=== PATIENT | male | born 1945 | race Caucasian/White ===

== ENCOUNTER 2017-08-11 18:26 | Emergency (ER) | payer OTHER ==
[2017-08-11] MEDS ORDERED: KETOROLAC 30 MG/1 ML SDV IVP ONE (18:45)
[2017-08-11] MEDS ORDERED: ONDANSETRON 4 MG/2 ML VIAL IVP ONE (18:45)
[2017-08-11] MEDS ORDERED: NS 1,000 ML IV ONE ×2 (18:45→20:14)
[2017-08-11] MEDS ORDERED: KETOROLAC 30 MG/1 ML SDV ONE (18:46)
[2017-08-11] MEDS ORDERED: ONDANSETRON 4 MG/2 ML VIAL ONE (18:46)
--- NOTE | 2017-08-11 18:46 | EDPHY ---
HPI/HX/ROS/PE/MDM Narrative: CHIEF COMPLAINT: RLQ pain, nausea, vomiting HPI: The patient is a 72 y/o male with a history of a bilateral hernia surgery and prostatectomy complaining of RLQ pain, onset this morning. The pain gradually increased throughout the day. After eating lunch, he vomited 3 times and developed chills. He last vomited 1.5 hours ago. Nothing alleviates the pain. Denies urinary complaints or history of kidney stone. Last bowel movement was 2 days ago. His last colonoscopy revealed 2 polyps; no sign of diverticulosis. Denies chest pain, shortness of breath, headache, paresthesias, numbness. REVIEW OF SYSTEMS: Aside from elements discussed in the HPI, a comprehensive 10-point review of systems was reviewed and is negative. PMH: GERD, prostatectomy, bilateral hernia surgery SOCIAL HISTORY: at bedside, lives in [place], retired PHYSICAL EXAM: General: Patient is alert, appears in pain, in no acute distress. ENT: Eyes are normal to inspection. ENT inspection normal. Neck: Normal inspection. Full range of motion. Respiratory: No respiratory distress. Breath sounds normal bilaterally. Cardiovascular: Regular rate and rhythm. Strong peripheral pulses. Normal cap refill. Abdomen: RLQ tenderness and moderate diffuse tenderness to palpation. There are no peritoneal signs. There are normal bowel sounds. Back: Normal to inspection. No tenderness to palpation. Skin: Normal color. No rash. Warm and dry. Extremities: Normal appearance. Full range of motion. Neuro: Oriented x3. Normal motor function. Normal sensory function. ED Course: 2016: I reviewed patient's abdominopelvic CT, radiologist reading still pending. 0.5mg IV Dilaudid administered. 2042: Spoke with Dr. Monae, radiologist, regarding this patient's CT. The patient has a right-sided kidney stone. 4mm, UVJ. 2044: Reassessed patient and discussed imaging findings. He is feeling better after fluids, Zofran, and Toradol. I have advised him to strain his urine and to follow up with urology. Return precautions provided; patient is comfortable with this plan. 2103: Spoke with radiologist, the patient has hypodensities in his spleen which he will need to talk to his PCP about. I informed him of this result as well as the need for follow-up. 2109: Reassessed patient and discussed incidental CT findings. MDM: This patient presents with signs and symptoms of a kidney stone, confirmed on CTAP. I see no signs of other causes of pain and patient's pain is well- controlled here in the ED. We discussed follow-up plan. I see no signs of diverticulitis, appendicitis, bowel obstruction or bowel perforation. - Data Points Imaging Results: Imaging Impressions Abdomen CT 08/11/17 19:16 Impression: 1. Calculus measuring 4 mm impacted at the right ureterovesicular junction results in mild right hydroureteronephrosis with moderate associated periureteral/perinephric inflammation. 2. Innumerable hypodense lesions throughout the spleen are indeterminate. 3. Subtle apparent wall thickening in the sigmoid. Differential considerations include nondistention versus a small mass. Recommend referral to gastroenterology. 4. Diverticulosis without evidence of diverticulitis. Dr. Monae discussed these findings by telephone with Wei Ram MD on at 2043 hours. Imaging: Discussed imaging studies w/ central lab technician Radiologist, I viewed and interpreted images myself Laboratory Results: Laboratory Results 08/11/17 18:50 08/11/17 18:50 08/11/17 08/11/17 18:50 18:50 WBC 14.53 10^3/uL H 10^3/uL (3.80-9.50) RBC 4.87 10^6/uL 10^6/uL (4.40-6.38) Hgb 14.6 g/dL g/dL (13.7-17.5) Hct 41.8 % % (40.0-51.0) MCV 85.8 fL fL (81.5-99.8) MCH 30.0 pg pg (27.9-34.1) MCHC 34.9 g/dL g/dL (32.4-36.7) RDW 13.5 % % (11.5-15.2) Plt Count 233 10^3/uL 10^3/uL (150-400) MPV 10.6 fL fL (8.7-11.7) Neut % (Auto) 89.6 % H % (39.3-74.2) Lymph % (Auto) 5.8 % L % (15.0-45.0) Hand % (Auto) 3.9 % L % (4.5-13.0) Eos % (Auto) 0.0 % L % (0.6-7.6) Baso % (Auto) 0.1 % L % (0.3-1.7) Nucleat RBC Rel Count 0.0 % % (0.0-0.2) Absolute Neuts (auto) 13.02 10^3/uL H 10^3/uL (1.70-6.50) Absolute Lymphs (auto) 0.84 10^3/uL L 10^3/uL (1.00-3.00) Absolute Monos (auto) 0.56 10^3/uL 10^3/uL (0.30-0.80) Absolute Eos (auto) 0.00 10^3/uL L 10^3/uL (0.03-0.40) Absolute Basos (auto) 0.02 10^3/uL 10^3/uL (0.02-0.10) Absolute Nucleated RBC 0.00 10^3/uL 10^3/uL (0-0.01) Immature Gran % 0.6 % % (0.0-1.1) Immature Gran # 0.09 10^3/uL 10^3/uL (0.00-0.10) Sodium 145 mEq/L mEq/L (135-145) Potassium 3.9 mEq/L mEq/L (3.5-5.2) Chloride 107 mEq/L mEq/L (97-110) Carbon Dioxide 21 mEq/l L mEq/l (22-31) Anion Gap 17 mEq/L H mEq/L (8-16) BUN 26 mg/dL H mg/dL (7-23) Creatinine 1.4 mg/dL H mg/dL (0.7-1.3) Estimated GFR 50 Glucose 141 mg/dL H mg/dL (70-100) Calcium 9.7 mg/dL mg/dL (8.5-10.4) Medications Given: Discontinued Medications Hydromorphone HCl (Dilaudid) 0.5 mg IVP EDNOW ONE Stop: 08/11/17 20:19 Last Admin: 08/11/17 20:24 Dose: 0.5 mg Sodium Chloride (Ns) 1,000 mls @ 0 mls/hr IV EDNOW ONE; Wide Open PRN Reason: Protocol Stop: 08/11/17 18:46 Last Admin: 08/11/17 18:48 Dose: 1,000 mls Sodium Chloride (Ns) 1,000 mls @ 0 mls/hr IV ONCE ONE PRN Reason: Wide Open Stop: 08/11/17 20:15 Last Admin: 08/11/17 20:18 Dose: 1,000 mls Ketorolac Tromethamine (Toradol) 30 mg IVP EDNOW ONE Stop: 08/11/17 18:46 Last Admin: 08/11/17 18:48 Dose: 30 mg Ondansetron HCl (Zofran) 4 mg IVP EDNOW ONE Stop: 08/11/17 18:46 Last Admin: 08/11/17 18:48 Dose: 4 mg General Time Seen by Provider: 08/11/17 18:38 Initial Vital Signs: Initial Vital Signs Temperature (C) 36.6 C 08/11/17 18:33 Heart Rate 90 08/11/17 18:33 Respiratory Rate 16 08/11/17 18:33 Blood Pressure 147/83 H 08/11/17 18:33 O2 Sat (%) 98 08/11/17 18:33 O2 Delivery Mode Room Air Allergies/Adverse Reactions: caffeine Allergy (Verified 08/11/17 18:32) Sulfa (Sulfonamide Antibiotics) Allergy (Verified 08/11/17 18:32) Home Medications: Medication Instructions Recorded Ibuprofen 08/11/17 Omeprazole 08/11/17 Departure - Departure Disposition: Home, Routine, Self-Care Clinical Impression: Kidney stone on right side Condition: Good Instructions: Oxycodone/Acetaminophen (By mouth), Ondansetron (By mouth), Kidney Stones (ED) Additional Instructions: Followup with your urologist within one week. Return to the emergency apartment for fever, severe pain, inability to urinate or other concerns. Strain urine to try and catch the kidney stone and bring this to the urology appointment. You have hypodensity in your spleen which you need to talk to your PCP about. Referrals: Roderick Killian MD [Primary Care Provider] - As per Instructions Tiff Man MD [Medical Doctor] - As per Instructions Report Scribed for: Wei Ram Report Scribed by: Yesenia Sorto Date of Report: 08/11/17 Time of Report: 18:46 Physician Review and Approval Statement: Portions of this note were transcribed by an ED scribe. I personally performed the history, physical exam, and medical decision making; and confirm the accuracy of the information in the transcribed note.
[2017-08-11 19:13] LABS: PLATELET COUNT 233 10^3/uL (150-400)
[2017-08-11] MEDS ORDERED: IOPAMIDOL (ISOVUE-300) 100 ML BTL ONE (20:02)
[2017-08-11] MEDS ORDERED: HYDROmorphONE/DILAUDID 2 MG/ML INJ IVP ONE (20:18)
[2017-08-11] MEDS ORDERED: ONDANSETRON 4MG PREPACK#2 BTL TAKEHOME ONE (20:52)
[2017-08-11] MEDS ORDERED: OXYCODONE/APAP 5/325MG PREPACK#4 BTL TAKEHOME ONE (20:52)
[2017-08-11 21:37] VITALS: BP 116/71; PULSE 91; RESP 18; TEMP 98.2; O2SAT 93
== END 2017-08-11 21:37 | disposition home or self-care (01) ==
DX: N20.0 Calculus of kidney (principal); E86.9 Volume depletion, unspecified
CPT/HCPCS: 74177; 96361; 96374; 96375; 99285; J1170; J1885; J2405; Q9967

== ENCOUNTER → 2017-11-07 | Outpatient (CLI) | payer OTHER | LOC: FIMAGING 09:06 | DX: L29.9 Pruritus, unspecified (principal) ==